=== PATIENT | female | born 1955 | race Caucasian/White ===

== ENCOUNTER 2018-01-11 06:22 | Day surgery (SDC) | payer OTHER ==
[~2018-01-11] VITALS: Ht 162.6 cm; Wt 112.9 kg
[~2018-01-11 06:22] MED LIST: Acidophilus La100 GM PO; BUTALB-ASPIRIN1 EACH PO; CHOL10002 PO; CONEST.625 VAG; Hydrochlorothia25 MG PO; MAGNESIUM400 M1 PO; METR59TL TOP; Multivitamin1 EAC1 PO; NITR100 PO; RIBOFLAVIN PO; RIZATRIPTAN10 M1 PO
[2018-01-11 11:00] LABS: BASOPHILS ABSOLUTE AUTO 0.03 K/mm3 (0.00-0.23); BASOPHILS PERCENT AUTO 0 % (0-2); EOSINOPHILS ABSOLUTE AUTO 0.04 K/mm3 (0.00-0.68); EOSINOPHILS PERCENT AUTO 1 % (0-6); Hematocrit 38.2 % (33.0-51.0); IMMATURE GRAN ABSOLUTE AUTO 0.03 K/mm3 (0.00-0.10); IMMATURE GRAN PERCENT AUTO 0 % (0-1); LYMPHOCYTES ABSOLUTE AUTO 0.68 K/mm3 (0.84-5.20); LYMPHOCYTES PERCENT AUTO 8 % (21-46); MONOCYTES ABSOLUTE AUTO 0.21 K/mm3 (0.16-1.47); MONOCYTES PERCENT AUTO 2 % (4-13); Mean Corpuscular HGB 30.3 pg (26.0-34.0); Mean Corpuscular Volume 89 fL (80-100); Mean Platelet Volume 11.4 fL (9.1-12.4); NEUTROPHILS ABSOLUTE AUTO 7.76 K/mm3 (1.96-9.15); NEUTROPHILS PERCENT AUTO 89 % (41-73); Platelet Count 262 K/mm3 (150-400); RDW Coefficient Variation 13.5 % (11.7-14.2); RDW Standard Deviation 44.2 fL (35.1-46.3); Red Blood Cell Count 4.29 M/mm3 (3.80-5.20); White Blood Cell Count 8.75 K/mm3 (4.00-11.30)
[2018-01-12 04:32] LABS: BASOPHILS ABSOLUTE AUTO 0.02 K/mm3 (0.00-0.23); BASOPHILS PERCENT AUTO 0 % (0-2); EOSINOPHILS ABSOLUTE AUTO 0.02 K/mm3 (0.00-0.68); EOSINOPHILS PERCENT AUTO 0 % (0-6); Hematocrit 34.8 % (33.0-51.0); Hemoglobin 11.6 g/dL (11.5-16.0); IMMATURE GRAN ABSOLUTE AUTO 0.06 K/mm3 (0.00-0.10); IMMATURE GRAN PERCENT AUTO 0 % (0-1); LYMPHOCYTES ABSOLUTE AUTO 1.23 K/mm3 (0.84-5.20); LYMPHOCYTES PERCENT AUTO 9 % (21-46); MONOCYTES ABSOLUTE AUTO 1.23 K/mm3 (0.16-1.47); MONOCYTES PERCENT AUTO 9 % (4-13); Mean Corpuscular HGB 29.7 pg (26.0-34.0); Mean Corpuscular HGB Conc 33.3 g/dL (31.5-36.5); Mean Corpuscular Volume 89 fL (80-100); NEUTROPHILS ABSOLUTE AUTO 11.14 K/mm3 (1.96-9.15); NEUTROPHILS PERCENT AUTO 81 % (41-73); Platelet Count 278 K/mm3 (150-400); RDW Coefficient Variation 13.6 % (11.7-14.2); RDW Standard Deviation 44.3 fL (35.1-46.3)
[2018-01-12] MEDS ORDERED: OXYC5 PO (09:46)
== END 2018-01-12 13:39 | disposition home or self-care (01) ==
LOC: ORSCMMR 06:22 → ORD 07:30 → ORSCMMR 07:30 → SURS 10:30 → ORSCMMR 01-12 13:39
PROVIDERS: Obstetrics & Gynecology Gynecology
PROC: 0JQC0ZZ Repair Pelvic Region Subcutaneous Tissue and Fascia, Open Approach (ICD-10-PCS; principal; 2018-01-11 07:30)
PROC: 0TSD0ZZ Reposition Urethra, Open Approach (ICD-10-PCS; principal; 2018-01-11 07:30)
PROC: 0UQF0ZZ Repair Cul-de-sac, Open Approach (ICD-10-PCS; principal; 2018-01-11 07:30)
DX: N81.10 Cystocele, unspecified (principal); N81.6 Rectocele; N81.5 Vaginal enterocele; N39.3 Stress incontinence (female) (male); I10 Essential (primary) hypertension; G47.33 Obstructive sleep apnea (adult) (pediatric); E66.01 Morbid (severe) obesity due to excess calories; Z68.41 Body mass index [BMI] 40.0-44.9, adult; Z79.899 Other long term (current) drug therapy; Z79.82 Long term (current) use of aspirin
CPT/HCPCS: 36415; 85025; 94762; C1771; J0690; J1100; J1885; J2250; J2405; J2710; J3010; J7120; Q0163

== ENCOUNTER → 2018-01-26 | Outpatient (CLI) | payer OTHER ==
[~2018-01-26] MED LIST changes: +OXYC5 PO
[2018-01-26 13:18] LABS: Source, Urine Catheter
[2018-01-26 13:32] LABS: Appearance, Urine Clear (Clear); Bilirubin, Urine Neg (Neg); Blood, Urine Neg (Neg); Color, Urine Yellow (P-Yellow); Glucose Qualitative, Urine Neg (Neg); Ketones, Urine Neg (Neg); Leukocyte Esterase, Urine Neg (Neg); Nitrite, Urine Neg (Neg); Protein, Urine Neg (Neg); Urobilinogen, Urine NORM (Normal)
== END ==
LOC: LAB SHORT 11:24 → LAB 11:24
PROVIDERS: Obstetrics & Gynecology Gynecology
DX: R30.0 Dysuria (principal)
CPT/HCPCS: 81003

== ENCOUNTER 2018-12-26 10:51 | Day surgery (SDC) | payer OTHER ==
[~2018-12-26] VITALS: Ht 162.6 cm; Wt 116.5 kg
[2018-12-26] MEDS ORDERED: LIDO700A20 (11:54)
[2018-12-26] MEDS ORDERED: POTCIT10 (11:55)
--- NOTE | 2018-12-26 13:05 | NUR ---
12/26/18 1305 Maryellen Castillo ([facility] PT UPDATED REGARDING DELAY. PT VERY UNDERSTANDING, CALM. PT UP TO RESTROOM WITH SBA. NO NEEDS AT THIS TIME.
--- NOTE | 2018-12-26 13:26 | NUR ---
12/26/18 1326 Maryellen Castillo SIMETHICONE USED DURING PROCEDURE.
--- NOTE | 2018-12-26 16:04 | NUR ---
12/26/18 1604 Maryellen Castillo PT CALM, AWAKE, LAUGHING AND TALKING IN PROCEDURE ROOM. PT JOKING ABOUT POKEMON. UPON ARRIVAL TO PT ROOM, PT BEGAN TO CLUTCH HER RUQ OF ABDOMEN. PT STARTED WHIMPERING, TEARLESSLY CRYING, STATING HER "LIVER WAS AGONIZING." PT STATES SHE CAN FEEL HER LIVER METABOLIZING THE "ANESTHESIA GAS" SHE RECEIEVED FOR THE PROCEDURE. I ASSURED THE PATIENT THAT SHE DID NOT RECEIVE ANY ANESTHESIA GAS FOR THE PROCEDURE, AND EDUCATED HER REGARDING THE PROPOFOL WAS USED INTERVENOUSLY. THIS RN PROVIDED EDUCATION REGARDING PROPOFOL, PROCEDURE AND WHAT TO EXPECT THROUGHT STAY IN PRE-OP, PRIOR TO PROCEDURE. A WARM BLANKET AND HOT PACK WAS PROVIDED TO PATIENT TO APPLY TO HER ABDOMEN FOR PAIN CONTROL. PT EASILY DISTRACTED, AND NO LONG WRITHING, SOBBING, CLUTCHING ABDOMEN, STRAIGHT FACE, WHEN PT BEGAN TALKING ABOUT PREVIOUS HEALTH HISTORY, PERSONAL LIFE, IE HER , HER EMPLOYMENT, HOBBIES. WHEN REDIRECTED TO CURRENT STAY, DISCHARGE INSTRUCTIONS, CLARIFICATION OF ORDERS, PATIENT BEGAN TO WRITH, CLUTCH ABDOMEN, TEARLESS CRIES, ETC. THIS RN COMFORTED PATIENT, REITERATED DISCHARGE EDUCATION, AND LEAD PATIENT WITH A STANDBY ASSIST TO MEET HER SPOUSE AT CAR. UPON SEEING SPOUSE, PATIENT SMILING, LAUGHING AND MAKING JOKES. PT GRABBED THIS NURSE BY THE FACE WITH BOTH HANDS AND ATTEMPTED TO KISS. THIS RN DECLINED, STEPPED BACK AND ASKED PATIENT TO RELEASE HER HANDS. PT THEN GOT DEFENSIVE AND STATED, "I WAS JUST GOING TO KISS YOU ON THE CHEEK."
== END 2018-12-26 14:20 | disposition home or self-care (01) ==
LOC: ORSCSDS 10:51
PROVIDERS: Internal Medicine Gastroenterology
PROC: 0DB98ZX Excision of Duodenum, Via Natural or Artificial Opening Endoscopic, Diagnostic (ICD-10-PCS; principal; 2018-12-26 12:15)
PROC: 0DB68ZX Excision of Stomach, Via Natural or Artificial Opening Endoscopic, Diagnostic (ICD-10-PCS; principal; 2018-12-26 12:15)
DX: R10.11 Right upper quadrant pain (principal); R13.10 Dysphagia, unspecified; K29.70 Gastritis, unspecified, without bleeding; K22.0 Achalasia of cardia; I10 Essential (primary) hypertension; G47.33 Obstructive sleep apnea (adult) (pediatric); E78.5 Hyperlipidemia, unspecified; E66.01 Morbid (severe) obesity due to excess calories; Z68.41 Body mass index [BMI] 40.0-44.9, adult; Z79.899 Other long term (current) drug therapy
CPT/HCPCS: 88305; 88342; J2704; J7120